=== PATIENT | female | born 2000 | race Two or more races ===

== ENCOUNTER 2022-03-13 20:05 | Inpatient (IN) ==
[2022-03-13] MEDS ORDERED: OXYTOCIN/LR 20 UNIT/1,000 ML BAG IV ONE (20:35)
[2022-03-13] MEDS ORDERED: TRANEXAMIC ACID 1,000 MG in SODIUM CHLORIDE 0.9% 100 ML IV PRN (20:35)
[2022-03-13] MEDS ORDERED: BUTORPHANOL 2 MG/ML VIAL IV PRN (20:35)
[2022-03-13] MEDS ORDERED: MEPERIDINE 50 MG/1 ML VIAL IV PRN (20:35)
[2022-03-13] MEDS ORDERED: ONDANSETRON 4 MG/2 ML VIAL IV PRN (20:35)
[2022-03-13] MEDS ORDERED: CARBOPROST TROMETHAMINE 250 MCG/ML AMP IM PRN (20:35)
[2022-03-13] MEDS ORDERED: miSOPROStoL 200 MCG TABLET RECTAL PRN (20:35)
[2022-03-13] MEDS ORDERED: METHYLERGONOVINE 0.2 MG/1 ML AMP IM PRN (20:35)
[2022-03-13 21:00] LABS: Basophils # 0.1 10*3/uL (0.0-0.2); Basophils % 0.4 % (0.0-0.8); Eosinophils # 0.2 10*3/uL (0.0-0.87); Hematocrit 35.4 VOL% (35.7-47.0); Hemoglobin 11.1 GM/DL (12.0-16.0); Immature Granulocytes % 4.4 %; Immature Granulocytes Absolute 0.53 #; Lymphocytes # 3.3 10*3/uL (1.4-4.0); Lymphocytes % 27.6 % (21.3-54.2); Mean Corpuscular HGB Conc 31.4 GM/DL (32-36); Mean Corpuscular Volume 92.7 FL (87-102); Mean Platelet Volume 11.5 FL (9.6-12.0); Monocytes # 0.8 10*3/uL (0.11-0.8); Monocytes % 6.2 % (1.7-12.7); Neutrophils % 59.4 % (38.7-73.9); Platelet Count 234 T/CUMM (130-400); Red Blood Count 3.82 MC/CUMM (3.8-5.5); Red Cell Distribution Width 14.1 % (9.3-17.3)
[2022-03-13 21:21] LABS: Alanine Aminotransferase 20 U/L (13-56); Albumin 2.7 G/DL (3.4-5.0); Alkaline Phosphatase 259 U/L (45-117); Aspartate Amino Transferase 16 U/L (0-37); Bilirubin,Total < 0.39 MG/DL (0.20-1.00); Blood Urea Nitrogen 6 MG/DL (7-18); Calcium 9.1 MG/DL (8.5-10.1); Carbon Dioxide 20 MMOL/L (21-32); Chloride 109 MMOL/L (98-107); Glucose 122 MG/DL (74-106); Osmolality,Calculated 277.4 MOS/KG (273-304); Potassium 3.7 MMOL/L (3.5-5.1); Sodium 140 MMOL/L (136-145); Total Protein 7.5 G/DL (6.4-8.2)
[2022-03-13 21:27] LABS: Eosinophils 2 % (0-10); Lymphocytes 29 % (20-55); Metamyelocytes 1 %; Total Cells Counted 100
[2022-03-13 21:28] LABS: Platelet Estimate Adequate; Polychromasia Slight
[2022-03-14] MEDS: LACTATED RINGERS 1,000 ML IV SCH ×3 (03:12→09:54)
[2022-03-14] MEDS ORDERED: BUTORPHANOL 1 MG/ML VIAL IV PRN (03:45)
[2022-03-14] MEDS ORDERED: OXYTOCIN/LR 20 UNIT/1,000 ML BAG IV SCH (06:00)
[2022-03-14] MEDS ORDERED: hydrOXYzine HCL 25 MG/1 ML VIAL IM PRN (08:24)
[2022-03-14] MEDS ORDERED: PROMETHAZINE 25 MG/1 ML VIAL IM ONE (08:24)
[2022-03-14] MEDS ORDERED: NALOXONE 0.4 MG/ML VIAL IV PRN (08:24)
[2022-03-14] MEDS ORDERED: ePHEDrine 50 MG/ML VIAL IV PRN (08:24)
[2022-03-14] MEDS ORDERED: FAMOTIDINE 20 MG/2 ML VIAL IV ONE (08:24)
[2022-03-14] MEDS ORDERED: diphenhydrAMINE 50 MG/1 ML VIAL IV PRN ×2 (08:24)
[2022-03-14] MEDS ORDERED: CITRIC ACID/SODIUM CITRATE 30 ML UDCUP PO ONE (08:24)
[2022-03-14] MEDS ORDERED: fentaNYL 2 MCG/ROPIV 0.2% EPID 100 ML EPIDURAL SCH (08:30)
[2022-03-14 09:52] LABS: Mucus,Urine Occasional /LPF (Occasional); RBC,Urine 1 /HPF (0-4); Squamous Epithelial Cell,Urine Occasional /HPF (0-10)
[2022-03-14 09:54] LABS: Bilirubin,Urine Negative (Negative); Blood, Urine Negative (Negative); Glucose,Urine (UA) Negative (Negative); Ketones,Urine Negative (Negative); Nitrite,Urine Negative (Negative); Protein,Urine Negative (Negative); Urine Appearance Clear (Clear); Urine Color Yellow (Yellow); Urine Urobilinogen 0.2 eU/dL (<2.0)
[2022-03-14] MEDS ORDERED: miSOPROStoL 200 MCG TABLET ONE (13:26)
[2022-03-14] MEDS ORDERED: SODIUM CHLORIDE 0.9% 0 ML IV ONE (13:26)
[2022-03-14] MEDS ORDERED: METHYLERGONOVINE 0.2 MG/1 ML AMP ONE (13:26)
[2022-03-14] MEDS ORDERED: OXYTOCIN/LR 0 UNIT/0 ML BAG IV ONE (13:26)
[2022-03-14] MEDS ORDERED: TRANEXAMIC ACID 1,000 MG/10 ML VIAL ONE (13:26)
[2022-03-14] MEDS ORDERED: CARBOPROST TROMETHAMINE 250 MCG/ML AMP IM ONE (13:27)
[2022-03-14 13:54] LABS: Cord Arterial Blood HCO3 21.4 MMOL/L
[2022-03-14 13:58] LABS: Cord Venous Blood HCO3 22.8 MMOL/L; Cord Venous Blood PCO2 42.4 MMHG; Cord Venous Blood PO2 32.6
[2022-03-14] MEDS ORDERED: OXYTOCIN/LR 20 UNIT/1,000 ML BAG IV ONE (18:22)
[2022-03-14] MEDS ORDERED: ACETAMINOPHEN 325 MG TABLET PO PRN (18:22)
[2022-03-14] MEDS ORDERED: HYDROCORTISONE 2.5% RECTAL CREAM 30 GM TUBE TOP PRN (18:22)
[2022-03-14] MEDS ORDERED: WITCH HAZEL PADS 100/JAR TOP PRN (18:22)
[2022-03-14] MEDS ORDERED: oxyCODONE/ACETAMINOPHEN 5-325 MG TABLET PO PRN (18:22)
[2022-03-14] MEDS ORDERED: RHO(D) IMMUNE GLOBULIN 300 MCG SYRINGE IM ONE (18:22)
[2022-03-14] MEDS ORDERED: BISACODYL 10 MG SUPP RECTAL PRN (18:22)
[2022-03-14] MEDS ORDERED: MEASLES/MUMPS/RUBELLA VACCINE 0.5 ML VIAL SUBCUT ONE (18:22)
[2022-03-14] MEDS ORDERED: LANOLIN 50% CREAM 0.3 OZ TUBE TOP PRN (18:22)
[2022-03-14] MEDS ORDERED: DIPH/TET/ACEL PERT BOOSTER VACCINE 0.5 ML VIAL IM ONE (18:22)
[2022-03-14] MEDS ORDERED: ONDANSETRON 4 MG/2 ML VIAL IV PRN (18:22)
[2022-03-14] MEDS ORDERED: BENZOCAINE 20%/MENTHOL 0.5% SPRAY 56 GM CAN TOP PRN (18:22)
[2022-03-14] MEDS: IBUPROFEN 800 MG TABLET PO PRN (19:55)
[2022-03-14] MEDS: oxyCODONE/ACETAMINOPHEN 5-325 MG TABLET PO PRN (19:55)
[2022-03-14] MEDS: DOCUSATE SODIUM 100 MG CAPSULE PO SCH (21:08)
[2022-03-15 05:31] LABS: Basophils # 0.1 10*3/uL (0.0-0.2); Basophils % 0.4 % (0.0-0.8); Eosinophils # 0.3 10*3/uL (0.0-0.87); Eosinophils % 1.7 % (0.00-10.9); Hematocrit 30.5 VOL% (35.7-47.0); Hemoglobin 9.6 GM/DL (12.0-16.0); Immature Granulocytes % 1.9 %; Lymphocytes # 3.8 10*3/uL (1.4-4.0); Lymphocytes % 24.4 % (21.3-54.2); Mean Corpuscular HGB Conc 31.5 GM/DL (32-36); Mean Corpuscular Volume 91.6 FL (87-102); Mean Platelet Volume 11.1 FL (9.6-12.0); Monocytes # 1.1 10*3/uL (0.11-0.8); Neutrophils % 64.6 % (38.7-73.9); Platelet Count 186 T/CUMM (130-400); Red Blood Count 3.33 MC/CUMM (3.8-5.5); Red Cell Distribution Width 14.1 % (9.3-17.3); White Blood Count 15.7 T/CUMM (4-12)
[2022-03-15] MEDS ORDERED: INFLUENZA VIRUS VACCINE 0.5 ML SYRINGE IM ONE (09:00)
[2022-03-15] MEDS: DOCUSATE SODIUM 100 MG CAPSULE PO SCH ×2 (09:49→22:24)
[2022-03-15] MEDS: IBUPROFEN 800 MG TABLET PO PRN (09:59)
[2022-03-15] MEDS: oxyCODONE/ACETAMINOPHEN 5-325 MG TABLET PO PRN (15:33)
[2022-03-16] MEDS: oxyCODONE/ACETAMINOPHEN 5-325 MG TABLET PO PRN ×2 (01:22→08:45)
[2022-03-16] MEDS: IBUPROFEN 800 MG TABLET PO PRN (05:26)
[2022-03-16 08:17] VITALS: BP 102/59
[2022-03-16] MEDS: DOCUSATE SODIUM 100 MG CAPSULE PO SCH (08:45)
[2022-03-16 09:12] LABS: Basophils % 0.3 % (0.0-0.8); Eosinophils # 0.2 10*3/uL (0.0-0.87); Eosinophils % 2.1 % (0.00-10.9); Immature Granulocytes % 2.2 %; Immature Granulocytes Absolute 0.25 #; Lymphocytes # 3.3 10*3/uL (1.4-4.0); Lymphocytes % 29.2 % (21.3-54.2); Mean Corpuscular HGB Conc 31.3 GM/DL (32-36); Mean Corpuscular Volume 90.9 FL (87-102); Mean Platelet Volume 10.8 FL (9.6-12.0); Monocytes # 0.6 10*3/uL (0.11-0.8); Monocytes % 5.2 % (1.7-12.7); Platelet Count 213 T/CUMM (130-400); Red Blood Count 3.52 MC/CUMM (3.8-5.5); Red Cell Distribution Width 14.5 % (9.3-17.3); White Blood Count 11.5 T/CUMM (4-12)
== END 2022-03-16 11:50 | disposition home or self-care (01) | DRG 807 ==
LOC: N.LD 20:05 → N.OB 03-14 18:20
PROVIDERS: ADMIT Specialist; ATTEND Specialist